=== PATIENT | female | born 1965 | race American Indian/Alaskan Native ===

== ENCOUNTER 2020-01-06 07:54 | Emergency (ER) | payer MEDICAID ==
[2020-01-06] MEDS ORDERED: ASPIRIN 325 MG TAB PO ONE (08:15)
[2020-01-06 08:37] LABS: Basophils % (Auto) 0.3 % (0.0-1.8); Eosinophils % (Auto) 0.2 % (0.0-4.3); Hematocrit 40.6 % (30.3-42.9); Lymphocytes # (Auto) 1.3 K/mm3 (1.2-5.4); Mean Corpuscular HGB Conc 34 % (30-34); Mean Corpuscular Volume 81 fl (79-97); Monocytes # (Auto) 0.9 K/mm3 (0.0-0.8); Platelet Count 190 K/mm3 (140-440); Red Blood Count 4.99 M/mm3 (3.65-5.03); Red Cell Distribution Width 13.5 % (13.2-15.2)
[2020-01-06 08:53] LABS: BUN/Creatinine Ratio 18; Blood Urea Nitrogen 11 mg/dL (7-17); Calcium 9.4 mg/dL (8.4-10.2); Hemolysis Index 1
--- NOTE | 2020-01-06 09:12 | XRay Report ---
CHEST 2 VIEWS INDICATION: Chest Pain. COMPARISON: None. FINDINGS: Support devices: None. Heart: Within normal limits. Pulmonary vasculature: Normal. Lungs/pleura: The lungs are clear and normally expanded. No pneumothorax. Additional findings: None. IMPRESSION: 1. Normal chest. Signer Name: Demond Mejía MD Signed: 01/06/2020 9:08 AM Workstation Name: [id number]
[2020-01-06] MEDS ORDERED: POTASSIUM CHLORIDE ER 20 MEQ TAB PO ONE (09:33)
[2020-01-06] MEDS ORDERED: SODIUM CHLORIDE 0.9% 1000 ML 1,000 ML IV ONE ×2 (09:33→11:22)
[2020-01-06] MEDS ORDERED: KETOROLAC 30 MG/1 ML INJ IV ONE (09:52)
--- NOTE | 2020-01-06 09:56 | Emergency Department Report ---
ED Dizziness HPI - General Chief Complaint: Dizziness Stated Complaint: DIZZINESS,PAIN IN LEGS Time Seen by Provider: 01/06/20 09:32 Source: patient Mode of arrival: Ambulatory Limitations: No Limitations - History of Present Illness Initial Comments: 54-year-old female with a past medical history of hypertension and previous tubal ligation presents to the hospital with complaints of lightheadedness, nausea, poor appetite, and headache. Symptoms started 4 days ago. Patient states she had a syncopal episode while sitting on the toilet 4 days ago. She complains of intermittent headache that moves around her scalp and nausea with vomiting episodes yesterday. Patient had one episode of sharp left-sided chest pain 2 days ago that has since resolved and not recurred. She denies shortness of breath, calf tenderness, leg edema, fevers, melena, hematochezia, or hematemesis. Patient is on chlorthalidone 25, carvedilol 25 mg, and recently had spironolactone 25 mg added to regimen. - Related Data Previous Rx's Medication Instructions Recorded Last Taken Type Potassium Chloride 20 meq PO QDAY #2 packet 01/06/20 Unknown Rx Allergies Allergy/AdvReac Type Severity Reaction Status Date / Time amlodipine Allergy Unknown Verified 01/06/20 08:15 hydrochlorothiazide Allergy Unknown Verified 01/06/20 08:15 lisinopril Allergy Anaphylaxis Verified 01/06/20 08:15 ED Review of Systems ROS: Stated complaint: DIZZINESS,PAIN IN LEGS Other details as noted in HPI Comment: All other systems reviewed and negative ED Past Medical Hx - Past Medical History Previous Medical History?: Yes Hx Hypertension: Yes - Surgical History Past Surgical History?: Yes Additional Surgical History: Tubal ligation - Social History Smoking Status: Current Every Day Smoker Substance Use Type: Marijuana - Medications Home Medications: Home Medications Medication Instructions Recorded Confirmed Last Taken Type Potassium Chloride 20 meq PO QDAY #2 packet 01/06/20 Unknown Rx ED Physical Exam - General Limitations: No Limitations - Other Other exam information: General: No acute distress Head: Atraumatic Eyes: normal appearance ENT: Moist mucous membranes Neck: Normal appearance, no midline tenderness, no nuchal rigidity Chest: Clear to auscultation bilaterally CV: Regular rate and rhythm Abdomen: Soft, normal bowel sounds, nontender, nondistended, no rebound or guarding Back: Normal inspection Extremity: Normal inspection, full range of motion, no calf tenderness or leg edema Neuro: Alert O x 3, no facial asymmetry, speech clear, no gross motor sensory deficit Psych: Appropriate behavior Skin: No rash ED Course Vital Signs 01/06/20 01/06/20 01/06/20 08:02 08:09 11:44 Temperature 98.1 F 98.6 F Pulse Rate 95 H 94 H 86 Respiratory 18 18 16 Rate Blood Pressure 131/93 131/93 Blood Pressure 149/87 [Right] O2 Sat by Pulse 99 98 100 Oximetry 01/06/20 01/06/20 12:34 13:25 Temperature Pulse Rate 84 86 Respiratory 15 16 Rate Blood Pressure Blood Pressure 151/96 152/109 [Right] O2 Sat by Pulse 98 100 Oximetry ED Medical Decision Making - Lab Data Result diagrams: 01/06/20 08:23 01/06/20 08:23 Lab Results 01/06/20 01/06/20 01/06/20 Range/Units 08:23 08:23 08:43 WBC 11.1 H (4.5-11.0) K/mm3 RBC 4.99 (3.65-5.03) M/mm3 Hgb 14.0 (10.1-14.3) gm/dl Hct 40.6 (30.3-42.9) % MCV 81 (79-97) fl MCH 28 (28-32) pg MCHC 34 (30-34) % RDW 13.5 (13.2-15.2) % Plt Count 190 (140-440) K/mm3 Lymph % (Auto) 12.0 L (13.4-35.0) % [place] % (Auto) 8.0 H (0.0-7.3) % Eos % (Auto) 0.2 (0.0-4.3) % Baso % (Auto) 0.3 (0.0-1.8) % Lymph # 1.3 (1.2-5.4) K/mm3 [place] # 0.9 H (0.0-0.8) K/mm3 Eos # 0.0 (0.0-0.4) K/mm3 Baso # 0.0 (0.0-0.1) K/mm3 Seg Neutrophils % 79.5 H (40.0-70.0) % Seg Neutrophils # 8.8 H (1.8-7.7) K/mm3 Sodium 126 L (137-145) mmol/L Potassium 2.9 L* (3.6-5.0) mmol/L Chloride 79.0 L (98-107) mmol/L Carbon Dioxide 27 (22-30) mmol/L Anion Gap 23 mmol/L BUN 11 (7-17) mg/dL Creatinine 0.6 L (0.7-1.2) mg/dL Estimated GFR > 60 ml/min BUN/Creatinine Ratio 18 % Glucose 123 H (65-100) mg/dL Calcium 9.4 (8.4-10.2) mg/dL Magnesium 2.10 (1.7-2.3) mg/dL Troponin T < 0.010 (0.00-0.029) ng/mL Urine Color (Yellow) Urine Turbidity (Clear) Urine pH (5.0-7.0) Ur Specific [place] (1.003-1.030) Urine Protein (Negative) mg/dL Urine Glucose (UA) (Negative) mg/dL Urine Ketones (Negative) mg/dL Urine Blood (Negative) Urine Nitrite (Negative) Urine Bilirubin (Negative) Urine Urobilinogen (<2.0) mg/dL Ur Leukocyte Esterase (Negative) Urine WBC (Auto) (0.0-6.0) /HPF Urine RBC (Auto) (0.0-6.0) /HPF U Epithel Cells (Auto) (0-13.0) /HPF Urine Mucus /HPF 01/06/20 01/06/20 Range/Units 09:59 11:33 WBC (4.5-11.0) K/mm3 RBC (3.65-5.03) M/mm3 Hgb (10.1-14.3) gm/dl Hct (30.3-42.9) % MCV (79-97) fl MCH (28-32) pg MCHC (30-34) % RDW (13.2-15.2) % Plt Count (140-440) K/mm3 Lymph % (Auto) (13.4-35.0) % [place] % (Auto) (0.0-7.3) % Eos % (Auto) (0.0-4.3) % Baso % (Auto) (0.0-1.8) % Lymph # (1.2-5.4) K/mm3 [place] # (0.0-0.8) K/mm3 Eos # (0.0-0.4) K/mm3 Baso # (0.0-0.1) K/mm3 Seg Neutrophils % (40.0-70.0) % Seg Neutrophils # (1.8-7.7) K/mm3 Sodium (137-145) mmol/L Potassium (3.6-5.0) mmol/L Chloride (98-107) mmol/L Carbon Dioxide (22-30) mmol/L Anion Gap mmol/L BUN (7-17) mg/dL Creatinine (0.7-1.2) mg/dL Estimated GFR ml/min BUN/Creatinine Ratio % Glucose (65-100) mg/dL Calcium (8.4-10.2) mg/dL Magnesium (1.7-2.3) mg/dL Troponin T < 0.010 (0.00-0.029) ng/mL Urine Color [place] (Yellow) Urine Turbidity Clear (Clear) Urine pH 6.0 (5.0-7.0) Ur Specific [place] 1.026 (1.003-1.030) Urine Protein 30 mg/dl (Negative) mg/dL Urine Glucose (UA) Neg (Negative) mg/dL Urine Ketones Tr (Negative) mg/dL Urine Blood Neg (Negative) Urine Nitrite Neg (Negative) Urine Bilirubin Neg (Negative) Urine Urobilinogen 4.0 (<2.0) mg/dL Ur Leukocyte Esterase Neg (Negative) Urine WBC (Auto) 3.0 (0.0-6.0) /HPF Urine RBC (Auto) 1.0 (0.0-6.0) /HPF U Epithel Cells (Auto) 1.0 (0-13.0) /HPF Urine Mucus 3+ /HPF - EKG Data -: EKG Interpreted by Nv EKG shows normal: sinus rhythm, ST-T waves (no stemi) Rate: normal - Radiology Data Radiology results: report reviewed CHEST 2 VIEWS INDICATION: Chest Pain. COMPARISON: None. FINDINGS: Support devices: None. Heart: Within normal limits. Pulmonary vasculature: Normal. Lungs/pleura: The lungs are clear and normally expanded. No pneumothorax. Additional findings: None. IMPRESSION: 1. Normal chest. CT HEAD WITHOUT CONTRAST INDICATION / CLINICAL INFORMATION: MAIN: headache, nausea X 24 HRS. TECHNIQUE: All CT scans at this location are performed using CT dose reduction for ALARA by means of automated exposure control. COMPARISON: None available. FINDINGS: HEMORRHAGE: No evidence of intracranial hemorrhage or extra-axial fluid collection. EXTRA-AXIAL SPACES: Cortical sulci, sylvian fissures and basilar cisterns have an unremarkable appearance. VENTRICULAR SYSTEM: The ventricular system is of normal size and configuration. CEREBRAL PARENCHYMA: No areas of abnormal brain parenchymal attenuation are identified. There is no indication of recent infarction. MIDLINE SHIFT OR HERNIATION: There is no mass effect. CEREBELLUM / BRAINSTEM: Brainstem and cerebellum have an unremarkable appearance. INTRACRANIAL VESSELS:No abnormalities are identified on this noncontrast head CT. ORBITS: visualized portions of the orbits have an unremarkable appearance. SOFT TISSUES of HEAD: No significant abnormality. CALVARIUM: Evaluation of bone windows reveals no abnormalities. PARANASAL SI NUSES / MASTOID AIR CELLS: Paranasal sinuses are free from inflammatory mucosal disease. Mastoid air cells are normally pneumatized. ADDITIONAL FINDINGS: None. IMPRESSION: 1. No acute intracranial abnormality. - Medical Decision Making Patient likely has electrolyte abnormality secondary to her current medications which include diuretics. Patient received normal saline and potassium supplementation. Toradol also help with headache. CT head unremarkable. Symptoms likely secondary to overdiuresis with electrolyte abnormality. Symptoms improved with ED treatment. Patient instructed to discontinue chlorthalidone and continue her other medications and follow-up with her primary care doctor - Differential Diagnosis Dehydration, infection, tumor, ICH, electrolyte abnormality Critical Care Time: No Critical care attestation.: If time is entered above; I have spent that time in minutes in the direct care of this critically ill patient, excluding procedure time. ED Disposition Clinical Impression: Lightheadedness, Adverse effects of medication, Hypokalemia, Hyponatremia Disposition: DC- TO HOME OR SELFCARE Is pt being admited?: No Condition: Stable Instructions: Hyponatremia (ED), Hypokalemia (ED), Lightheadedness (ED) Additional Instructions: Discontinue the chlorthalidone. Continue other medications as prescribed. Follow-up with your doctor for further evaluation/recheck your electrolytes and for continued medication adjustment. Return if symptoms worsen as indicated by your discharge instructions. Prescriptions: Potassium Chloride 20 meq PO QDAY #2 packet Referrals: CESAR BOND [Primary Care Provider] - 2-3 Days Time of Disposition: 14:12
[2020-01-06 10:30] LABS: Bilirubin,Urine NEG (Negative); Blood,Urine NEG (Negative); Color,Urine Amber (Yellow); Mucus,Urine 3+ /HPF
[2020-01-06] MEDS ORDERED: ASPIRIN 325 MG TAB ONE (10:34)
--- NOTE | 2020-01-06 10:51 | Cat Scan Report ---
CT HEAD WITHOUT CONTRAST INDICATION / CLINICAL INFORMATION: MAIN: headache, nausea X 24 HRS. TECHNIQUE: All CT scans at this location are performed using CT dose reduction for ALARA by means of automated e xposure control. COMPARISON: None available. FINDINGS: HEMORRHAGE: No evidence of intracranial hemorrhage or extra-axial fluid collection. EXTRA-AXIAL SPACES: Cortical sulci, sylvian fissures and basilar cisterns have an unremarkable appear ance. VENTRICULAR SYSTEM: The ventricular system is of normal size and configuration. CEREBRAL PARENCHYMA: No areas of abnormal brain parenchymal attenuation are identified. There is no i ndication of recent infarction. MIDLINE SHIFT OR HERNIATION: There is no mass effect. CEREBELLUM / BRAINSTEM: Brainstem and cerebellum have an unremarkable appearance. INTRACRANIAL VESSELS:No abnormalities are identified on this noncontrast head CT. ORBITS: visualized portions of the orbits have an unremarkable appearance. SOFT TISSUES of HEAD: No significant abnormality. CALVARIUM: Evaluation of bone windows reveals no abnormalities. PARANASAL SINUSES / MASTOID AIR CELLS: Paranasal sinuses are free from inflammatory mucosal disease. Mastoid air cells are normally pneumatized. ADDITIONAL FINDINGS: None. IMPRESSION: 1. No acute intracranial abnormality. Signer Name: Demond Mejía MD Signed: 01/06/2020 10:47 AM Workstation Name: [id number]
[2020-01-06 13:25] VITALS: BP 152/109
== END 2020-01-06 14:50 | disposition home or self-care (01) ==
LOC: ED 07:54
DX: R42 Dizziness and giddiness (principal); E87.6 Hypokalemia; E87.1 Hypo-osmolality and hyponatremia; T50.905A Adverse effect of unspecified drugs, medicaments and biological substances, initial encounter; Y92.89 Other specified places as the place of occurrence of the external cause
CPT/HCPCS: 36415; 70450; 71046; 80048; 81001; 83735; 84484; 85025; 93005; 93010; 96361; 96374; 99285; J1885; J7030